=== PATIENT | male | born 1990 | race Caucasian/White ===

== ENCOUNTER 2020-08-06 10:07 | Emergency (ER) | payer SELFPAY ==
[~2020-08-06] VITALS: Ht 175.3 cm; Wt 68.7 kg
[2020-08-06 10:16] VITALS: BP 143/100
== END 2020-08-06 12:55 | disposition left against medical advice (07) ==
LOC: ER 10:08
DX: F19.939 Other psychoactive substance use, unspecified with withdrawal, unspecified (principal); Z53.21 Procedure and treatment not carried out due to patient leaving prior to being seen by health care provider